=== PATIENT | male | born 1995 | race Two or more races ===

== ENCOUNTER 2018-11-05 08:59 | Emergency (ER) | payer SELFPAY ==
--- NOTE | 2018-11-05 09:19 | EDM.PDOC ---
ED HPI GENERAL MEDICAL PROBLEM - General Chief Complaint: Respiratory Problem Stated Complaint: CHEST PAIN,SOB Time Seen by Provider: 11/05/18 09:18 Source of Information: Reports: Patient, RN, RN Notes Reviewed History Limitations: Reports: No Limitations - History of Present Illness INITIAL COMMENTS - FREE TEXT/NARRATIVE: Pt to ER with c/o pain in the throat and anterior chest wall bilaterally. He states he has had a cough for the past 3 weeks. Today he was coughing and had to sit up on the edge of the bed to catch his breath. He states 3 weeks ago when he initially got sick he had a fever and chills, N/V/D, but not since then. Onset: Gradual Throat Pain Score (Numeric/FACES): 5 - Related Data Allergies Allergy/AdvReac Type Severity Reaction Status Date / Time No Known Allergies Allergy Verified 11/05/18 09:15 Home Meds: Home Meds . [No Known Home Meds] 11/05/18 [History] ED ROS GENERAL - Review of Systems Review Of Systems: ROS reveals no pertinent complaints other than HPI. ED EXAM, GENERAL - Physical Exam Exam: See Below Exam Limited By: Language Barrier General Appearance: Alert, WD/WN, No Apparent Distress Eye Exam: Bilateral Eye: EOMI, Normal Inspection Ears: Normal External Exam, Normal Canal, Hearing Grossly Normal, Normal TMs Ear Exam: Bilateral Ear: TM normal Nose: Normal Inspection Throat/Mouth: Normal Inspection, Normal Lips, Normal Teeth, Normal Gums, Normal Oropharynx, Normal Voice, No Airway Compromise Head: Atraumatic, Normocephalic Neck: Normal Inspection, Supple, Non-Tender, Full Range of Motion Respiratory/Chest: No Respiratory Distress, Lungs Clear, Normal Breath Sounds, No Accessory Muscle Use, Chest Non-Tender Cardiovascular: Normal Peripheral Pulses, Regular Rate, Rhythm, No Edema, No Gallop, No JVD, No Murmur, No Rub Peripheral Pulses: 2+: Radial (L), Radial (R) GI/Abdominal: Normal Bowel Sounds, Soft, Non-Tender (Male) Exam: Deferred Rectal (Males) Exam: Deferred Back Exam: Normal Inspection, Full Range of Motion, NT Extremities: Normal Inspection Neurological: Alert, Oriented, CN II-XII Intact, Normal Cognition, Normal Gait, Normal Reflexes, No Motor/Sensory Deficits Psychiatric: Normal Affect, Normal Mood Skin Exam: Warm, Dry, Intact, Normal Color, No Rash Lymphatic: No Adenopathy Course - Vital Signs Last Recorded V/S: Last Vital Signs Temp 99.4 F 11/05/18 09:15 Pulse 78 11/05/18 09:15 Resp 18 11/05/18 09:15 BP 132/64 11/05/18 09:15 Pulse Ox 98 11/05/18 09:15 - Orders/Labs/Meds Orders: Active Orders 24 hr Category Date Time Status CULTURE STREP A CONFIRMATION [RM] Stat Lab 11/05/18 09:11 Results STREP SCRN A RAPID W CULT CONF [RM] Stat Lab 11/05/18 09:11 Results Labs: Rapid Strep: Negative Departure - Departure Time of Disposition: 10:01 Disposition: Home, Self-Care 01 Condition: Good Clinical Impression: Bronchitis - Discharge Information *PRESCRIPTION DRUG MONITORING PROGRAM REVIEWED*: No *COPY OF PRESCRIPTION DRUG MONITORING REPORT IN PATIENT MARICEL: No Instructions: Shortness of Breath, Adult, [id number], Acute Bronchitis, Adult , Npsv-gy-Hghf, Upper Respiratory Infection, Adult, Aesn-vj-Xrup, Bronchospasm, Adult, [id number] Forms: ED Department Discharge Additional Instructions: RX: Albuterol Inhaler, Azithromycin Drink plenty of water May use over the counter Robitussin for cough Follow up with your primary care facility if no improvement - My Orders Last 24 Hours: My Active Orders 11/05/18 09:11 CULTURE STREP A CONFIRMATION [RM] Stat STREP SCRN A RAPID W CULT CONF [RM] Stat - Assessment/Plan Last 24 Hours: My Active Orders 11/05/18 09:11 CULTURE STREP A CONFIRMATION [RM] Stat STREP SCRN A RAPID W CULT CONF [RM] Stat
== END 2018-11-05 10:23 | disposition home or self-care (01) ==
LOC: DL.ED 08:59
DX: J40 Bronchitis, not specified as acute or chronic (principal)
CPT/HCPCS: 87081; 87430; 99283

== ENCOUNTER 2018-12-16 09:42 | Emergency (ER) | payer SELFPAY ==
--- NOTE | 2018-12-16 10:04 | EDM.PDOC ---
ED HPI GENERAL MEDICAL PROBLEM - General Chief Complaint: Respiratory Problem Stated Complaint: CHEST TIGHTNESS,COUGH [id number] Time Seen by Provider: 12/16/18 09:59 Source of Information: Reports: Patient, RN, RN Notes Reviewed History Limitations: Reports: No Limitations - History of Present Illness INITIAL COMMENTS - FREE TEXT/NARRATIVE: Pt presents to the ER with c/o ongoing cough, sinus congestion, chest tightness with cough. States nauseated at times. Denies fever or chills. States he took the antibiotics prescribed on 11/05. Continues to use the Albuterol inhaler and Robitussin. States he thought he felt better for about a week, then got worse again. Onset: Gradual Duration: Constant Location: Reports: Head, Face, Abdomen - Related Data Allergies Allergy/AdvReac Type Severity Reaction Status Date / Time No Known Allergies Allergy Verified 12/16/18 10:04 Home Meds: Home Meds . [No Known Home Meds] 11/05/18 [History] Past Medical History - Past Health History Medical/Surgical History: Denies Medical/Surgical History Social & Family History - Family History Family Medical History: Noncontributory - Caffeine Use Caffeine Use: Reports: Soda ED ROS GENERAL - Review of Systems Review Of Systems: ROS reveals no pertinent complaints other than HPI. ED EXAM, GENERAL - Physical Exam Exam: See Below Exam Limited By: No Limitations General Appearance: Alert, WD/WN, No Apparent Distress Eye Exam: Bilateral Eye: EOMI, Normal Inspection Ears: Normal External Exam, Hearing Grossly Normal Nose: Normal Inspection Throat/Mouth: Normal Inspection, Normal Voice, No Airway Compromise Head: Atraumatic, Normocephalic, Facial Tenderness, Sinus Tenderness Neck: Normal Inspection, Supple, Non-Tender, Full Range of Motion Respiratory/Chest: No Respiratory Distress, Lungs Clear, Normal Breath Sounds, No Accessory Muscle Use, Chest Non-Tender Cardiovascular: Normal Peripheral Pulses, Regular Rate, Rhythm, No Edema, No Gallop, No JVD, No Murmur, No Rub GI/Abdominal: Normal Bowel Sounds, Soft, Non-Tender (Male) Exam: Deferred Rectal (Males) Exam: Deferred Back Exam: Normal Inspection, Full Range of Motion, NT Extremities: Normal Inspection, Normal Range of Motion, Non-Tender, No Pedal Edema, Normal Capillary Refill Neurological: Alert, Oriented, Normal Cognition, Normal Gait, Normal Reflexes, No Motor/Sensory Deficits Psychiatric: Normal Affect, Normal Mood Skin Exam: Warm, Dry, Intact, Normal Color, No Rash Lymphatic: No Adenopathy Course - Vital Signs Last Recorded V/S: Last Vital Signs Temp 98.1 F 12/16/18 09:47 Pulse 78 12/16/18 09:47 Resp 14 12/16/18 09:47 BP 111/79 12/16/18 09:47 Pulse Ox 100 12/16/18 09:47 Departure - Departure Time of Disposition: 10:07 Disposition: Home, Self-Care 01 Condition: Fair Clinical Impression: Bronchitis Sinusitis Qualifiers: Sinusitis location: unspecified location Chronicity: acute Recurrence: not specified as recurrent Qualified Code(s): J01.90 - Acute sinusitis, unspecified - Discharge Information *PRESCRIPTION DRUG MONITORING PROGRAM REVIEWED*: No *COPY OF PRESCRIPTION DRUG MONITORING REPORT IN PATIENT MARICEL: No Instructions: Sinusitis, Adult, [id number], Acute Bronchitis, Adult, Easy-to- Read Referrals: PCP,None [Primary Care Provider] - Forms: ED Department Discharge Additional Instructions: RX: Augmentin Drink plenty of water Continue to use Albuterol inhaler and Robitussin for cough Follow up with your primary care facility
== END 2018-12-16 10:14 | disposition home or self-care (01) ==
LOC: DL.ED 09:42
DX: J01.90 Acute sinusitis, unspecified (principal)
CPT/HCPCS: 99283

== ENCOUNTER 2019-02-18 14:35 | Emergency (ER) | payer SELFPAY ==
--- NOTE | 2019-02-18 14:46 | EDM.PDOC ---
ED HPI GENERAL MEDICAL PROBLEM - General Chief Complaint: Respiratory Problem Stated Complaint: chest pain, hard time breathing Time Seen by Provider: 02/18/19 14:50 Source of Information: Reports: Patient History Limitations: Reports: No Limitations - History of Present Illness INITIAL COMMENTS - FREE TEXT/NARRATIVE: patient comes emergency department today with continued complaints of shortness of breath and difficulty breathing for the past 4-6 months. For the past 4-6 months the patient has intermittent episodes when he wakes up from sleeping or a nap or after eating a large meal where he is short of breath and it is difficult to get his air he has a sore itchy scratchy throat that is burning. Dry hacking productive cough. He has been seen 2 or 3 times for this in the past med concerns for bronchitis or sinusitis in the past. He has never had any fever or chills. Hiscough is dry hacking nonproductive. He denies any wheezing. He has no change in exercise tolerance. He has had no chest pain other than when he is coughing. He does complain of recurrent heartburn after every time he eats and when he lays down at night. He doesn't not smoke cigarettes although he smokes marijuana 2-3 times a day. He denies alcohol usage. he chronically struggles with sinus drainage that is clear as well as an itchy scratchy throat. Throat Pain Score (Numeric/FACES): 7 - Related Data Allergies Allergy/AdvReac Type Severity Reaction Status Date / Time No Known Allergies Allergy Verified 02/18/19 14:49 Home Meds: Home Meds Albuterol Sulfate [Albuterol Sulfate Hfa] 3 puff INH ASDIRECTED PRN 02/18/19 [ History] Past Medical History - Past Health History Medical/Surgical History: Denies Medical/Surgical History Social & Family History - Family History Family Medical History: Noncontributory - Caffeine Use Caffeine Use: Reports: Soda ED ROS GENERAL - Review of Systems Review Of Systems: ROS reveals no pertinent complaints other than HPI. ED EXAM, GENERAL - Physical Exam Exam: See Below Exam Limited By: No Limitations General Appearance: Alert, WD/WN, No Apparent Distress Eye Exam: Bilateral Eye: EOMI, PERRL Ears: Normal External Exam, Normal Canal, Normal TMs Nose: Clear Rhinorrhea, Other (There is quite a bit of erythema and swelling in the nasal passages. ). No: Nasal Drainage Throat/Mouth: No: Normal Inspection (Posterior pharynx with generalized mild erythema no injection with pink salmon colored vesicles consistent with PND. ) Head: Atraumatic, Normocephalic Neck: Normal Inspection, Supple, Non-Tender, Full Range of Motion Respiratory/Chest: No Respiratory Distress, Lungs Clear, Normal Breath Sounds, No Accessory Muscle Use Cardiovascular: Normal Peripheral Pulses, Regular Rate, Rhythm Peripheral Pulses: 2+: Posterior Tibial (L), Posterior Tibial (R), Dorsalis Pedis (L), Dorsalis Pedis (R) GI/Abdominal: Normal Bowel Sounds, Soft, Non-Tender Extremities: Normal Inspection, Normal Range of Motion Neurological: Alert, Oriented, CN II-XII Intact, Normal Reflexes Psychiatric: Normal Affect Skin Exam: Warm, Dry, Intact, Normal Color Course - Vital Signs Last Recorded V/S: Last Vital Signs Temp 36.6 C 02/18/19 14:44 Pulse 70 02/18/19 15:01 Resp 16 02/18/19 14:44 BP 132/65 02/18/19 14:44 Pulse Ox 99 02/18/19 15:01 - Orders/Labs/Meds Orders: Active Orders 24 hr Category Date Time Status RT Aerosol Therapy [RC] ASDIRECTED Care 02/18/19 15:01 Active RT Peak Flow Measurement [RC] ASDIRECTED Care 02/18/19 15:01 Active Meds: Medications Discontinued Medications Generic Name Dose Route Start Last Admin Trade Name Freq PRN Reason Stop Dose Admin Al Hydroxide/Mg Hydroxide 30 ml 02/18/19 14:56 Gi Cocktail PO 02/18/19 14:57 ONETIME ONE Albuterol 2.5 mg 02/18/19 15:01 02/18/19 15:12 Proventil Neb Soln NEB 02/18/19 15:02 2.5 mg ONETIME ONE Administration - Re-Assessments/Exams Free Text/Narrative Re-Assessment/Exam: 02/18/19 15:52 RT did come down and do a pre-and post peak flow test with albuterol really had no change. Really I have little to no concerns for asthma. Although reviewing his chart over the past 6 months he has been seen multiple times for this chronic cough. Historically the 3 main causes of chronic coughs R vocal cord dysfunction GERD or postnasal drip. This patient has 2 of those 3 including GERD and postnasal drip with chronic allergic rhinitis. We will treat him for his sinuses as well as his GERD and see if this helps with his cough. His couple of the spinous questions are answered. I did discuss with the patient that it is important for him to follow-up with primary care as this has been going on for quite some time to ensure appropriate follow-through. Departure - Departure Time of Disposition: 15:28 Disposition: Home, Self-Care 01 Clinical Impression: Chronic cough GERD (gastroesophageal reflux disease) Qualifiers: Esophagitis presence: esophagitis presence not specified Qualified Code(s): K21.9 - Gastro-esophageal reflux disease without esophagitis Allergic rhinitis Qualifiers: Allergic rhinitis trigger: unspecified Allergic rhinitis seasonality: unspecified Qualified Code(s): J30.9 - Allergic rhinitis, unspecified - Discharge Information Instructions: Shortness of Breath, Adult, Gokb-pp-Arto, Cough, Adult, Easy-to- Read, Allergies, Adult, [id number]-ai-Vdtk, Nasal Allergies, Oznp-vx-Bact, Gastroesophageal Reflux Disease, Adult, Jkzc-af-Reoh Forms: ED Department Discharge Additional Instructions: Maalox Mylanta OTC for acute episodes of heartburn. Omeprazole 1 tablet daily for the next 28 days. RX given to the patient. Carafate, 1 gram 4 times a day. 1/2 hour before meals and bedtime. RX given to the patient. for 28 days. See PCP and have testing for H Pylori. For the nose and throat cough. Zyrtec, 1 tablet daily OTC. Flonase, OTC, 2 spray each nostril for 1 week then 1 spray each nostril every day. Continue with the inhaler. Return to the ED if new or worsening symptoms. Follow up with PCP in the next 1-2 weeks for a recheck this is a must. This is a chronic condition requiring primary or chronic care follow up. - My Orders Last 24 Hours: My Active Orders 02/18/19 15:01 RT Aerosol Therapy [RC] ASDIRECTED RT Peak Flow Measurement [RC] ASDIRECTED - Assessment/Plan Last 24 Hours: My Active Orders 02/18/19 15:01 RT Aerosol Therapy [RC] ASDIRECTED RT Peak Flow Measurement [RC] ASDIRECTED Assessment:: Chronic cough which is most likely from either GERD or Allergic Rhinitis/PND GERD Allergic Rhinitis PND. Plan: Maalox Mylanta OTC for acute episodes of heartburn. Omeprazole 1 tablet daily for the next 28 days. RX given to the patient. Carafate, 1 gram 4 times a day. 1/2 hour before meals and bedtime. RX given to the patient. for 28 days. See PCP and have testing for H Pylori. For the nose and throat cough. Zyrtec, 1 tablet daily OTC. Flonase, OTC, 2 spray each nostril for 1 week then 1 spray each nostril every day. Continue with the inhaler. Return to the ED if new or worsening symptoms. Follow up with PCP in the next 1-2 weeks for a recheck this is a must. This is a chronic condition requiring primary or chronic care follow up.
[2019-02-18] MEDS ORDERED: GI Cocktail Oral Solution 30 ML PO ONE (14:56)
[2019-02-18] MEDS ORDERED: Albuterol 0.083% 2.5 MG/3 ML Neb Soln NEB ONE (15:01)
== END 2019-02-18 15:39 | disposition home or self-care (01) ==
LOC: DL.ED 14:35
DX: K21.9 Gastro-esophageal reflux disease without esophagitis (principal); J30.9 Allergic rhinitis, unspecified
CPT/HCPCS: 94640; 99284-25; J7613-GY

== ENCOUNTER 2021-07-24 13:23 | Emergency (ER) | payer OTHER ==
--- NOTE | 2021-07-24 13:38 | EDM.PDOC ---
ED HPI GENERAL MEDICAL PROBLEM - General Chief Complaint: Gastrointestinal Problem Stated Complaint: VOMITING SINCE LAST NIGHT Time Seen by Provider: 07/24/21 13:38 Source of Information: Reports: Patient, Old Records, RN, RN Notes Reviewed History Limitations: Reports: No Limitations - History of Present Illness INITIAL COMMENTS - FREE TEXT/NARRATIVE: Pt presents to ER from home by POV with c/o epigastric abdominal pain and burning with acid reflux, and sour acid taste in back of the mouth. Pt states symptoms began last evening (07/23/21) with no spicy or fatty food, suspected bad/spoiled food, fever, chills, or sick contact. Later last evening pt began vomiting and has not been able to keep down any food or liquid today. He admits to mild diarrhea today. Denies coffee ground or bloody emesis, or black/bloody/melanotic stools. Hx of acid reflux which has bothered him much since a flare up about a year ago. Onset: Gradual Onset Date: 07/23/21 Duration: Constant, Getting Worse Location: Reports: Abdomen Quality: Reports: Burning Severity: Severe Improves with: Reports: None Worsens with: Reports: Eating Associated Symptoms: Reports: No Other Symptoms - Related Data Allergies Allergy/AdvReac Type Severity Reaction Status Date / Time No Known Allergies Allergy Verified 07/24/21 13:46 Past Medical History - Past Health History Medical/Surgical History: Denies Medical/Surgical History HEENT History: Reports: None Cardiovascular History: Reports: None Respiratory History: Reports: None Gastrointestinal History: Reports: GERD Genitourinary History: Reports: None Musculoskeletal History: Reports: None Neurological History: Reports: None Psychiatric History: Reports: None Endocrine/Metabolic History: Reports: Obesity/BMI 30+ Hematologic History: Reports: None Immunologic History: Reports: None Oncologic (Cancer) History: Reports: None Dermatologic History: Reports: None - Infectious Disease History Infectious Disease History: Reports: None - Past Surgical History Head Surgeries/Procedures: Reports: None Social & Family History - Family History Family Medical History: No Pertinent Family History - Caffeine Use Caffeine Use: Reports: Soda - Living Situation & Occupation Living situation: Reports: with Family ED ROS GENERAL - Review of Systems Review Of Systems: Comprehensive ROS is negative, except as noted in HPI. ED EXAM, GI/ABD - Physical Exam Exam: See Below Exam Limited By: No Limitations General Appearance: Alert, WD/WN, No Apparent Distress, Obese Eyes: Bilateral: Normal Appearance (No scleral icterus) Nose: Normal Inspection, No Blood Throat/Mouth: Normal Lips, Normal Teeth, Normal Gums, Normal Oropharynx, Normal Voice, No Airway Compromise, Other (Slightly dry oral membranes) Head: Atraumatic, Normocephalic Neck: Normal Inspection, Supple, Non-Tender, Full Range of Motion. No: Lymphadenopathy (L), Lymphadenopathy (R) Respiratory/Chest: No Respiratory Distress, Lungs Clear, Normal Breath Sounds, No Accessory Muscle Use, Chest Non-Tender Cardiovascular: Normal Peripheral Pulses, Regular Rate, Rhythm, No Edema, No Gallop, No JVD, No Murmur, No Rub GI/Abdominal Exam: Normal Bowel Sounds, Soft, No Organomegaly, No Distention, No Abnormal Bruit, No Mass, Pelvis Stable, Tender (Epigastric). No: Guarding, Rigid, Rebound Back Exam: Normal Inspection, Full Range of Motion, Vertebral Tenderness. No: CVA Tenderness (L), CVA Tenderness (R) Extremities: Normal Inspection Neurological: Alert, Oriented, No Motor/Sensory Deficits Psychiatric: Normal Mood Skin Exam: Warm, Dry, Intact, Normal Color, No Rash Course - Vital Signs Last Recorded V/S: Last Vital Signs Temp 99.5 F 07/24/21 13:41 Pulse 82 07/24/21 13:41 Resp 18 07/24/21 13:41 BP 124/73 07/24/21 13:41 Pulse Ox 98 07/24/21 13:41 - Orders/Labs/Meds Orders: Active Orders 24 hr Category Date Time Status Peripheral IV Care [RC] . DIRECTED Care 07/24/21 13:42 Active Sodium Chloride 0.9% [Saline Flush] Med 07/24/21 13:41 Active 10 ml FLUSH ASDIRECTED PRN Peripheral IV Insertion Adult [OM.PC] Stat Oth 07/24/21 13:41 Ordered Medication Orders Sodium Chloride (Sodium Chloride 0.9% 10 Ml Syringe) 10 ml FLUSH ASDIRECTED PRN PRN Reason: Keep Vein Open Last Admin: 07/24/21 14:21 Dose: 10 ml Documented by: JACKSON Labs: Laboratory Tests 07/24/21 07/24/21 Range/Units 14:07 14:32 WBC 10.4 H (5.0-10.0) 10^3/uL RBC 5.40 (4.6-6.2) 10^6/uL Hgb 14.9 (14.0-18.0) g/dL Hct 43.6 (40.0-54.0) % MCV 80.7 (80-100) fL MCH 27.6 (27.0-34.0) pg MCHC 34.2 (33.0-35.0) g/dL Plt Count 301 (150-450) 10^3/uL Neut % (Auto) 76.3 H (42.2-75.2) % Lymph % (Auto) 16.0 L (20.5-50.1) % [place] % (Auto) 6.7 (2-8) % Eos % (Auto) 0.8 L (1.0-3.0) % Baso % (Auto) 0.2 (0.0-1.0) % Sodium 142 (136-145) mmol/L Potassium 4.0 (3.5-5.1) mmol/L Chloride 106 (98-107) mmol/L Carbon Dioxide 26 (21-32) mmol/L Anion Gap 14.0 H (7-13) mEq/L BUN 11 (7-18) mg/dL Creatinine 0.76 (0.70-1.30) mg/dL Est Cr Clr Drug Dosing 158.25 mL/min Estimated GFR (MDRD) > 60 BUN/Creatinine Ratio 14.5 (No establ ref range) Glucose 82 (70-99) mg/dL Calcium 8.7 (8.5-10.1) mg/dL Total Bilirubin 0.4 (0.2-1.0) mg/dL AST 28 (15-37) U/L ALT 53 (16-63) U/L Alkaline Phosphatase 131 H (46-116) U/L Total Protein 7.7 (6.4-8.2) g/dL Albumin 3.8 (3.4-5.0) g/dL Globulin 3.9 Albumin/Globulin Ratio 1.0 Amylase 36 (25-115) U/L Lipase 63 L (73-393) U/L Meds: Medications Generic Name Dose Route Start Last Admin Trade Name Freq PRN Reason Stop Dose Admin Sodium Chloride 10 ml 07/24/21 13:41 07/24/21 14:21 Sodium Chloride 0.9% 10 Ml Syringe FLUSH 10 ml ASDIRECTED PRN Administration Keep Vein Open Discontinued Medications Generic Name Dose Route Start Last Admin Trade Name [place] PRN Reason Stop Dose Admin Famotidine 20 mg 07/24/21 13:49 07/24/21 14:22 Famotidine 20 Mg/2 Ml Sdv IVPUSH 07/24/21 13:50 20 mg ONETIME ONE Administration Sodium Chloride 1,000 mls @ 999 mls/hr 07/24/21 13:47 07/24/21 14:22 Normal Saline IV 07/24/21 14:47 999 mls/hr .BOLUS ONE Administration Ondansetron HCl 4 mg 07/24/21 13:47 07/24/21 14:20 Ondansetron 4 Mg/2 Ml Sdv IV 07/24/21 13:48 4 mg ONETIME ONE Administration - Re-Assessments/Exams Free Text/Narrative Re-Assessment/Exam: 07/24/21 15:25 Pt's symptoms are completely relieved follow tx in ER. Departure - Departure Time of Disposition: 15:26 Disposition: Home, Self-Care 01 Condition: Good Clinical Impression: Esophagitis with gastritis - Discharge Information *PRESCRIPTION DRUG MONITORING PROGRAM REVIEWED*: Not Applicable *COPY OF PRESCRIPTION DRUG MONITORING REPORT IN PATIENT MARICEL: Not Applicable Instructions: Gastritis, Adult, [id number], Food Choices for Gastroesophageal Reflux Disease, Adult Forms: ED Department Discharge Additional Instructions: Rx: Pepcid (Famotidine) 40mg Rx: Zofran (Ondansetron) 4mg Follow up in clinic if any further problems. Sepsis Event Note (ED) - Focused Exam Vital Signs: Vital Signs Temp Pulse Resp BP Pulse Ox 07/24/21 13:41 99.5 F 82 18 124/73 98 - My Orders Last 24 Hours: My Active Orders 07/24/21 13:41 Sodium Chloride 0.9% [Saline Flush] 10 ml FLUSH ASDIRECTED PRN Peripheral IV Insertion Adult [OM.PC] Stat 07/24/21 13:42 Peripheral IV Care [RC] . DIRECTED - Assessment/Plan Last 24 Hours: My Active Orders 07/24/21 13:41 Sodium Chloride 0.9% [Saline Flush] 10 ml FLUSH ASDIRECTED PRN Peripheral IV Insertion Adult [OM.PC] Stat 07/24/21 13:42 Peripheral IV Care [RC] . DIRECTED
[2021-07-24] MEDS ORDERED: Sodium Chloride 0.9% 10 ML Syringe FLUSH PRN (13:41)
[2021-07-24] MEDS ORDERED: Ondansetron 4 MG/2 ML SDV IV ONE (13:47)
[2021-07-24] MEDS ORDERED: Sodium Chloride 0.9% 1,000 ML IV ONE (13:47)
[2021-07-24] MEDS ORDERED: Famotidine 20 MG/2 ML SDV IVPUSH ONE (13:49)
[2021-07-24 14:59] LABS: CHLORIDE,CL 106 mmol/L (98-107); SODIUM,NA 142 mmol/L (136-145)
== END 2021-07-24 15:42 | disposition home or self-care (01) ==
LOC: DL.ED 13:23
DX: K20.90 Esophagitis, unspecified without bleeding (principal); K29.70 Gastritis, unspecified, without bleeding; E66.9 Obesity, unspecified; Z68.35 Body mass index [BMI] 35.0-35.9, adult
CPT/HCPCS: 36415; 80053; 82150; 83690; 85025; 96374; 96375; 99284; J2405; J3490; J7030

== ENCOUNTER 2022-01-03 22:32 | Emergency (ER) | payer OTHER ==
[2022-01-03 23:26] LABS: CHLORIDE,CL 101 mmol/L (98-107); SODIUM,NA 140 mmol/L (136-145)
[2022-01-03 23:48] LABS: CORONAVIRUS COVID-19 NAA NEGATIVE (NEGATIVE)
== END 2022-01-04 00:04 | disposition home or self-care (01) ==
LOC: DL.ED 22:32
DX: J31.0 Chronic rhinitis (principal); J06.9 Acute upper respiratory infection, unspecified; E66.9 Obesity, unspecified; Z68.30 Body mass index [BMI] 30.0-30.9, adult; Z20.822 Contact with and (suspected) exposure to COVID-19
CPT/HCPCS: 0240U; 36415; 80048; 85025; 87081; 87430; 99283

== ENCOUNTER 2022-01-11 13:43 | Emergency (ER) | payer OTHER ==
[2022-01-11] MEDS ORDERED: Promethazine 25 MG/ML SDV IM ONE (15:04)
[2022-01-11] MEDS ORDERED: Ketorolac 30 MG/ML SDV IM ONE (15:04)
[2022-01-11] MEDS ORDERED: Butorphanol 2 MG/ML SDV IM ONE (16:06)
== END 2022-01-11 16:48 | disposition home or self-care (01) ==
LOC: DL.ED 13:43
DX: G44.83 Primary cough headache (principal); J06.9 Acute upper respiratory infection, unspecified; E66.9 Obesity, unspecified; Z68.39 Body mass index [BMI] 39.0-39.9, adult
CPT/HCPCS: 96372; 99282; 99283; J1885; J2550

== ENCOUNTER 2022-01-13 00:19 | Emergency (ER) | payer OTHER ==
[2022-01-13] MEDS ORDERED: Metoclopramide 10 MG/2 ML SDV IVPUSH ONE (00:35)
[2022-01-13] MEDS ORDERED: Sodium Chloride 0.9% 10 ML Syringe FLUSH PRN (00:35)
[2022-01-13] MEDS ORDERED: Sodium Chloride 0.9% 1,000 ML IV ONE (00:35)
[2022-01-13] MEDS ORDERED: Ketorolac 30 MG/ML SDV IVPUSH ONE (00:35)
[2022-01-13] MEDS ORDERED: diphenhydrAMINE 50 MG/ML SDV IVPUSH ONE (00:36)
[2022-01-13 01:08] LABS: ANION GAP 11.6 mEq/L (7-13); CHLORIDE,CL 101 mmol/L (98-107); SODIUM,NA 139 mmol/L (136-145)
== END 2022-01-13 02:42 | disposition home or self-care (01) ==
LOC: DL.ED 00:19
DX: G43.909 Migraine, unspecified, not intractable, without status migrainosus (principal); E66.9 Obesity, unspecified; Z68.38 Body mass index [BMI] 38.0-38.9, adult
CPT/HCPCS: 36415; 70450; 80053; 85025; 96374; 96375; 99283; 99284-25; J1200; J1885; J2765; J3490; J7030

== ENCOUNTER 2022-08-18 16:43 | Emergency (ER) | payer OTHER ==
[2022-08-18] MEDS ORDERED: Acetaminophen 325 MG Tab PO ONE (17:16)
[2022-08-18] MEDS ORDERED: Ibuprofen 800 MG Tab PO ONE (17:16)
[2022-08-18 18:25] LABS: CORONAVIRUS COVID-19 NAA NEGATIVE (NEGATIVE); RESPIRATORY SYNCYTIAL VIR NAA NEGATIVE (NEGATIVE)
== END 2022-08-18 19:26 | disposition home or self-care (01) ==
LOC: DL.ED 16:43
DX: J10.1 Influenza due to other identified influenza virus with other respiratory manifestations (principal); E66.9 Obesity, unspecified; Z68.37 Body mass index [BMI] 37.0-37.9, adult; Z20.822 Contact with and (suspected) exposure to COVID-19
CPT/HCPCS: 0241U; 99283; A9270

== ENCOUNTER 2023-02-02 06:33 | Emergency (ER) | payer MEDICAID, OTHER ==
[2023-02-02] MEDS ORDERED: Sodium Chloride 0.9% 10 ML Syringe FLUSH PRN (07:16)
[2023-02-02] MEDS ORDERED: HYDROmorphone 1 MG/ML Syringe IVPUSH ONE (07:30)
[2023-02-02 07:38] LABS: BASOPHILS PERCENT AUTO 0.2 % (0.0-1.0); EOSINOPHILS PERCENT AUTO 0.7 % (1.0-3.0); HEMATOCRIT 44.6 % (40.0-54.0); HEMOGLOBIN 15.2 g/dL (14.0-18.0); LYMPHOCYTES PERCENT AUTO 17.3 % (20.5-50.1); MEAN CORPUSCULAR HEMOGLOBIN 27.9 pg (27.0-34.0); MEAN CORPUSCULAR HGB CONC 34.1 g/dL (33.0-35.0); MEAN CORPUSCULAR VOLUME 81.8 fL (80-100); NEUTROPHILS PERCENT AUTO 73.8 % (42.2-75.2); PLATELET COUNT,PLT 281 10^3/uL (150-450); RED BLOOD CELL COUNT 5.45 10^6/uL (4.6-6.2); WHITE BLOOD CELL COUNT,WBC 13.1 10^3/uL (5.0-10.0)
[2023-02-02 07:58] LABS: ALANINE AMINOTRANSFERASE,ALT 65 U/L (16-63); ALKALINE PHOSPHATASE 136 U/L (46-116); ANION GAP 14.3 mEq/L (7-13); ASPARTATE AMNIOTRANSFERASE,AST 24 U/L (15-37); BILIRUBIN TOTAL 0.5 mg/dL (0.2-1.0); BLOOD UREA NITROGEN,BUN 13 mg/dL (7-18); BUN/CREATININE RATIO 13.8 (No establ ref range); C-REACTIVE PROTEIN 2.4 mg/dL (0.0-0.9); CALCIUM 9.1 mg/dL (8.5-10.1); CARBON DIOXIDE,CO2 27 mmol/L (21-32); CHLORIDE,CL 104 mmol/L (98-107); CREATININE 0.94 mg/dL (0.70-1.30); EST CRCL DRUG DOSING (CG) 126.84 mL/min; GLUCOSE RANDOM 115 mg/dL (70-99); POTASSIUM,K 4.3 mmol/L (3.5-5.1); PROTEIN TOTAL,TP 8.1 g/dL (6.4-8.2); SODIUM,NA 141 mmol/L (136-145)
[2023-02-02 08:04] LABS: ESTIMATED GFR 115 mL/min (>=60); LACTIC ACID 0.8 mmol/L (0.4-2.0)
[2023-02-02] MEDS ORDERED: Iopamidol 612 MG/ML 100 ML Bottle IVPUSH ONE (08:05)
[2023-02-02] MEDS ORDERED: Lidocaine 1% 5 ML VIAL INJECT ONE (10:18)
[2023-02-02] MEDS ORDERED: Lidocaine/Prilocaine 2.5-2.5% Crm 5 GM Tube TOP ONE (10:19)
[2023-02-02] MEDS ORDERED: Ondansetron 4 MG/2 ML SDV IVPUSH ONE (10:20)
[2023-02-02] MEDS ORDERED: fentaNYL 100 MCG/2 ML SDV IVPUSH ONE (10:21)
[2023-02-02] MEDS ORDERED: traMADol 50 MG Tab ONE (11:33)
== END 2023-02-02 11:41 | disposition home or self-care (01) ==
LOC: DL.ED 06:33
DX: L05.91 Pilonidal cyst without abscess (principal)
CPT/HCPCS: 10061; 10080; 36415; 72193; 80053; 83605; 84145; 85025; 86140; 87040; 87070; 96365; 96366; 96375; 99283; 99284; A9270; J1170; J2405; J3010; J3370; J7040; Q9967; J3490

== ENCOUNTER 2025-07-13 01:11 | Emergency (ER) | payer SELFPAY | END 2025-07-13 02:00 | disposition home or self-care (01) | LOC: DL.ED 01:11 | DX: J20.8 Acute bronchitis due to other specified organisms (principal); Z79.899 Other long term (current) drug therapy | CPT/HCPCS: 71045; 93005; 99285; A9270-GY ==